=== PATIENT | male | born 1985 | race Caucasian/White ===

== ENCOUNTER 2018-02-02 03:24 | Emergency (ER) | payer BC, OTHER ==
[2018-02-02] MEDS ORDERED: LIDOCAINE 1% W/EPI 1:100,000 MDV 50 ML VIAL ONE (03:38)
[2018-02-02] MEDS ORDERED: NA CHLORIDE 0.9% 1,000 ML ONE (04:00)
[2018-02-02 04:03] LABS: Absolute Monocytes 0.8 K/uL (0.1-1.3); Absolute Neutrophil 5.2 K/uL (1.8-8.0); Basophils % 0.4 % (0-1.3); Eosinophils % 2.2 % (0-4.4); Lymphocytes % 32.7 % (15.3-44.8); MCH 33.2 pg (27.0-35.0); MCV 95.5 fL (80-100); MPV 9.5 fL (7.6-11.3); Monocytes % 8.9 % (3.3-12.3)
[2018-02-02 04:15] LABS: Potassium 3.5 mmol/L (3.5-5.1)
[2018-02-02] MEDS ORDERED: CEFAZOLIN SODIUM 1 GM/VIAL ONE (04:19)
[2018-02-02] MEDS ORDERED: NA CHLORIDE 0.9% 100 ML IV ONE (04:19)
[2018-02-02] MEDS ORDERED: TETANUS & DIPHTHERIA TOX,ADULT 0.5 ML VIAL ONE (04:19)
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
== END 2018-02-02 08:53 | disposition home or self-care (01) ==
LOC: ER 03:24
PROC: 0JQH0ZZ Repair Left Lower Arm Subcutaneous Tissue and Fascia, Open Approach (ICD-10-PCS; principal; 2018-02-02)
DX: S51.812A Laceration without foreign body of left forearm, initial encounter (principal); S55.812A Laceration of other blood vessels at forearm level, left arm, initial encounter; S56.922A Laceration of unspecified muscles, fascia and tendons at forearm level, left arm, initial encounter; X78.1XXA Intentional self-harm by knife, initial encounter; F10.129 Alcohol abuse with intoxication, unspecified; Z23 Encounter for immunization
CPT/HCPCS: 36415; 80048; 80320; 85018; 85025; 86850; 86900; 86901; 90714; 96365; 99284; J0690; J7030